=== PATIENT | female | born 1995 | race Hispanic/Latino ===

== ENCOUNTER 2020-02-03 06:54 | Observation (INO) | payer OTHER ==
[~2020-02-03] VITALS: Ht 154.9 cm; Wt 99.8 kg
--- NOTE | 2020-02-03 10:40 | NUR ---
New admit to the floor. Pt arrived awake, alert and oriented x4. Vital signs are stable, afebrile. Pt instructed on her NPO status. Pt reports tolerable right upper quadrant pain. Positive bt's x4 quadrants. Pt denies rectal bleeding. No needs at this time. Call light within reach.
--- NOTE | 2020-02-03 12:51 | EKG ---
[facility] [address] [facility] [place] [address] Signed Normal sinus rhythm with sinus arrhythmia Cannot rule out Anterior infarct , age undetermined Abnormal ECG When compared with ECG of 28-JUL-2018 02:17, No significant change was found Confirmed by VIRGINIA DELGADO MD ([id number]) on 02/03/2020 12:50:50 PM Electronically Signed By: VIRGINIA DELGADO MD 02/03/20 1251 PATIENT NAME: FOYDUARTE Electrocardiogram DATE OF : [birth year] PHYSICIAN: VIRGINIA DELGADO MD REPORT #: [id number] REPORT IS CONFIDENTIAL AND NOT TO BE RELEASED WITHOUT AUTHORIZATION
--- NOTE | 2020-02-03 13:13 | NUR ---
Pt off unit in surgery at this time.
--- NOTE | 2020-02-03 14:04 | NUR ---
CHECKING ON PT, JAIDEN LOVELACE INFORMED ME PT TAKEN TO OR FOR LAP ELTON SURGERY. WILL FOLLOW UPON HER RETURN
--- NOTE | 2020-02-03 15:26 | NUR ---
02/03/20 1526 Zainab Robert 1502 PT ARRIVED IN PACU NON RESPONSIVE TO NOXIOUS STIMULI WITH OPA IN PLACE. CHIN LIFT HELD BY RN. 1515 PT REACTIVE. OPA REMOVED. DR AT BEDSIDE. 1525 OXYGEN REMOVED. SATS 93-95% ON RA. NO C/O'S AT THIS TIME.
--- NOTE | 2020-02-03 16:47 | NUR ---
Neuro check completed; pt has no notable physical deficits, however, is disoriented to all questions-Pt unable to tell me what her name is, location, date and or situtation. Pt's in room, pt did not recignize him. Pt's was present upon admit to this floor prior to surgery. Pt's hob elevated, alarm intact and bed moved to location directly in front of nurses station. Dressing to abdomen is cdi, x3 lap sites, rlq troy drain intact and patent. Encouraged pt to rest at this time. Cpox intact, 02 sat level of 97% on 2l oxygen per nc. No needs at this time. Call light within reach. Pt's speech is clear at this time.
--- NOTE | 2020-02-03 17:39 | NUR ---
Pt still confused, hob elevated. Pt reports pain is "ok" at this time. Zofran 4mg ivp admin for reports of nausea. Vital signs stable, cpox intact, 96% on 2L oxygen. LR infusing at this time. Incisions dressing CDI, troy drain intact and patent to rlq. Bed alarm intact. Pt voided in bedpain for safety; q/s. No needs at this time.
--- NOTE | 2020-02-03 18:53 | NUR ---
tORADOL 30MG IVP ADMIN FOR REPORTS OF 8/10 ABD PAIN.
--- NOTE | 2020-02-03 20:01 | NUR ---
PATIENT USING THE BED PEREZ, MORE ORIENTED NOW FROM DAYSHIFT REPORT. CALL LIGHT IN REACH.
--- NOTE | 2020-02-03 21:43 | NUR ---
PT CALLED, NEEDED TO USE BATHROOM. MIMINAL ASSISTANCE, ABLE TO WALK SLOWLY TO BATHROOM, AND BACK TO BED. ABLE TO PUT SELF INTO BED, RA, NOTED THAT O2 DIPPED TO 87, ENCOURAGED PT TO BREATH SHE MOVES. REBOUNDED QUICKLY TO 92, BACK ON O2. PT ATE FEW BITES OF JELLO. SCD'S IN PLACE, BED ALARM IN PLACE.
--- NOTE | 2020-02-03 23:34 | NUR ---
PATIENT WAS UP TO USE THE BATHROOM AND BACK TO BED 1 PA. IS IN THE ROOM.
--- NOTE | 2020-02-03 23:41 | NUR ---
PATIENT UP TO THE BATHROOM AND BACK TO BED WITH HELP FROM AND SOFTWARE RELEASE MANAGER. CALL LIGHT IN REACH. IN ROOM.
--- NOTE | 2020-02-04 02:52 | NUR ---
SBA TO THE BATHROOM AND BACK TO BED. IS IN THE ROOM.
--- NOTE | 2020-02-04 05:55 | NUR ---
PATIENT STILL HAVING 7/10 ABD PAIN AND NAUSEA. 4MG IV ZOFRAN GIVEN AND 2 PO NORCO. CALL LIGHT IN REACH.
--- NOTE | 2020-02-04 07:10 | NUR ---
REPORT RECIEVED FROM ALEJANDRA HWANG.
--- NOTE | 2020-02-04 08:08 | NUR ---
MORNING ASSESSMENT DONE. X3 SCOPE SITES INTACT WITH OLD DRAINAGE. RLQ ALTAGRACIA DRAIN STRIPPED AND EMPTIED FOR 10ML OF SEROSANGUIOUS FLUID THIS MORNING. PATIENT RATES PAIN 7/10, EASILY FALLS ASLEEP. PATIENT IS ON 1L OF O2 WITH SATE 93%, INCENTIVE SPIROMETER GIVEN, EDUCATED, PATIENT DID NOT GIVE RETURN DEMONSTRATION. ENCOURAGED SPIROMETER USE, ENCOURAGED PATIENT TO AMBULATE OUT OF BED. CURTAINS OPENED FOR DAYTIME. PATIENT DENIES WANTING T0 ORDER BREAKFAST, ENDORSES CONTINUING NAUSEA.
--- NOTE | 2020-02-04 10:00 | NUR ---
SPOKE WITH [employer] OFFICER. SHE STATES PATIENT HAS NO CM NEEDS KNOWN. SHE HAS DISCHARGE PLAN TO GO HOME WITH FAMILY AND WILL FOLLOW UP WITH DR FRAGOSO. THEY WILL PLACE CONSULT IF ANYTHING ARISES FOR CONCERN.
--- NOTE | 2020-02-04 10:01 | NUR ---
PATIENT PLACED ON ROOM AIR, SATS ARE 95%. ENCOURAGED PATIENT TO USE I/S, PATIENT REPLIED, "IT'S JUST TOO HARD, I CAN'T."
--- NOTE | 2020-02-04 11:24 | NUR ---
PATIENT ENCOURAGED TO GET UP AND VOID. REQUESTED PATIENT TO AMBULATE IN HALLWAY, SOMEWHAT RESISTANT, BUT DID TAKE A SHORT WALK IN HALLWAY.
--- NOTE | 2020-02-04 12:40 | NUR ---
PATIENT CONTINUES TO EAT MINIMAL AMOUNTS, DID ORDER A LUNCH TRAY BUT DENIES WANTING TO EAT AT THIS TIME. DR. MALDONADO HAS BEEN IN TO SEE PATIENT.
--- NOTE | 2020-02-04 13:41 | NUR ---
PATIENT IS GETTING UP AD DEBRA AND MOVING AROUND ROOM FOR ACTIVITY. PATIENT CONTINUES ON ROOM AIR WITH O2 SATS 91%, PATIENT ENCOURAGED TO USE I/S AND TAKE DEEP BREATHS. ALTAGRACIA EMPTIED FOR 10ML OF SERO/CLEARING TO YELLOW FLUID. PATIENT DENIES PAIN AT THIS TIME AND WOULD LIKE TO TAKE TYLENOL AT 1430
--- NOTE | 2020-02-04 17:07 | NUR ---
PATIENT UP TO VOID, ALTAGRACIA EMPTIED FOR 8ML OF YELLOW TINGED FLUID. PATIENT IS UP TO CHAIR FOR DINNER OF STEAK AND BAKED POTATO. PATIENT DENIES NEED FOR PAIN MEDICATIONS.
--- NOTE | 2020-02-04 19:01 | HP ---
[facility] [address] [place], [place] [address] Signed ADMISSION DATE: 02/03/2020 REASON FOR ADMISSION: Acute calculous cholecystitis. HISTORY OF PRESENT ILLNESS: This 24-year-old morbidly obese woman is accompanied by her . At approximately 3:00 a.m., she began having upper abdominal pain symptoms. In [place] a number of years ago, she presented with similar symptoms and was known to have gallstones at that time, but was considered "not needing cholecystectomy at that time." The pain actually presented as low anterior or epigastric pain. It waxes and wanes and is rather significant and severe to her. She has had no associated respiratory symptoms and no precordial chest pain or left upper extremity pain. Notably, she has no prior history of childbirth and is uncertain about any other family members with biliary disease. The patient does not work. Her who accompanies her, works at [employer] in the night custodian. The patient has not been exposed to any others with COVID symptoms. A COVID swab is reported to have been obtained in the ultrasound. Evaluation in the emergency room by Dr. Sage included a gallbladder ultrasound, which showed multiple gallstones and negative Arrington sign. PAST SURGICAL HISTORY: Includes right foot or ankle surgery in the distant past. She has no ongoing medical problems. Her evaluation included a urinalysis, which showed 2 white cells, trace leukocyte esterase. Her CBC showed a white count of 11.2, hematocrit 42.3, platelets 400,000. Liver enzymes were normal. Alkaline phosphatase was 62. Her bilirubin was 0.2. REVIEW OF SYSTEMS: She denies any shortness of breath or chest pain. She has had no dysphagia or dysuria. She has right upper abdominal pain and epigastric pain. PHYSICAL EXAMINATION: GENERAL: A morbidly obese woman, who speaks Bangladeshi well. She is accompanied by her . Electronically Signed By: HARLEY MALDONADO MD 02/04/20 1901 PATIENT NAME: DUARTE FOY HISTORY AND PHYSICAL DATE OF : [birth year] REPORT #: [id number] PHYSICIAN: HARLEY MALDONADO MD PCP: NO PRIMARY CARE PHYSICIAN REPORT IS CONFIDENTIAL AND NOT TO BE RELEASED WITHOUT AUTHORIZATION [facility] [address] [place], [place] [address] Signed VITAL SIGNS: Show a temperature of 97.3, pulse 66, blood pressure 101/39. NECK: Shows no thyromegaly or cervical adenopathy. Trachea is midline. CHEST: Clear. HEART: Regular without murmur. ABDOMEN: Very obese, but soft. There is tenderness in the right subcostal area and epigastric area. EXTREMITIES: Show no clubbing, cyanosis, or edema. LAB STUDIES: As previously noted. Gallbladder ultrasound reports as described. I have reviewed the images myself, which show normal appearing liver and gallbladder with a thickened gallbladder wall and apparent stones in the infundibulum. These are shadowing stones. ASSESSMENT: The patient has acute calculous cholecystitis. She has had problems in the past. She has been admitted for fluid resuscitation, IV antibiotics, anticipating cholecystectomy. It likely could be done today. The risks of bleeding, infection, bile duct injury, need for open procedure and other unforeseen complications was reviewed in detail. She understands and wished to proceed. Harley Maldonado MD JM/MODL /[id number] cc: Rafa Sage MD Copies: RAFA SAGE MD ~ Electronically Signed By: HARLEY MALDONADO MD 02/04/20 1901 PATIENT NAME: DUARTE FOY HISTORY AND PHYSICAL DATE OF : [birth year] REPORT #: [id number] PHYSICIAN: HARLEY MALDONADO MD PCP: NO PRIMARY CARE PHYSICIAN REPORT IS CONFIDENTIAL AND NOT TO BE RELEASED WITHOUT AUTHORIZATION
--- NOTE | 2020-02-04 19:01 | OR ---
[facility] [address] [place], [place] [address] Signed DATE OF OPERATION: 02/03/2020 SURGEON: Harley Maldonado MD PREOPERATIVE DIAGNOSES: 1. Acute calculous cholecystitis. 2. Morbid obesity. POSTOPERATIVE DIAGNOSES: 1. Acute calculous cholecystitis. 2. Morbid obesity. PROCEDURE: 1. Laparoscopic cholecystectomy with intraoperative cholangiogram. 2. Surgeon-directed fluoroscopy (prolonged, complicated, difficult, all of it). ANESTHESIA: General endotracheal; Viet Flores CRNA. DRAINS: 7 mm Mike. INDICATIONS: This morbidly obese 24-year-old woman lives in [place]. Several years ago in [place] while visiting, she went to the ER, was found to have symptoms of biliary colic and a gallbladder ultrasound performed, confirming gallstones. This was several years ago. She presented to the emergency room today and was evaluated by Dr. Yen with severe epigastric and substernal pain as well as right subcostal tenderness. Gallbladder ultrasound was performed confirming gallstones and a thickened gallbladder wall at least on my examination. She has been fluid resuscitated given intravenous antibiotics, and is recommended to undergo cholecystectomy for acute calculous cholecystitis. The risks of bleeding, infection, bile duct injury, need for open procedure and other unforeseen complications were reviewed in detail. Notably, the patient is quite morbidly obese and is anticipated to have possibly increased risk of need for open procedure. FINDINGS: She was indeed quite morbidly obese. The liver did not have excessive fatty infiltration however. Cholecystectomy was performed and cholangiogram showed free flow of contrast in the duodenum, no filling defect. The gallbladder itself was acutely Electronically Signed By: HARLEY MALDONADO MD 02/04/20 1901 PATIENT NAME: DUARTE FOY OPERATIVE REPORT DATE OF : [birth year] REPORT #: [id number] PHYSICIAN: HARLEY MALDONADO MD PCP: NO PRIMARY CARE PHYSICIAN REPORT IS CONFIDENTIAL AND NOT TO BE RELEASED WITHOUT AUTHORIZATION [facility] [address] [place], [place] [address] Signed inflamed and had two large gallstones wedged in the infundibulum. There was no sign of malignancy. The procedure was prolonged, complicated, and difficult on the basis of her obesity. An additional fan retractor was required testifying to the obesity issue. DESCRIPTION OF PROCEDURE: The patient was brought to the operating room, given a general endotracheal anesthetic. Preoperative antibiotic Ancef had been given. Sequential compression device stockings were used as well. The patient had COVID-19 testing, but the result was not yet back. Full precautions for COVID-19 were employed by all personnel. The abdomen was prepared with a chlorhexidine solution and draped sterilely. An infraumbilical incision was made and using an open Norma cannula technique, pneumoperitoneum achieved to a level of 14 mmHg of carbon dioxide gas. Intraabdominal inspection showed no sign of ascites or carcinomatosis. The gallbladder was distended and acutely inflamed, but not gangrenous. The liver edge was sharper than expected. She did not have much fatty infiltration as I would have anticipated. Three additional trocars were placed in usual configuration in the subxiphoid, right midclavicular, and right anterior axillary line. The gallbladder was elevated cephalad, but could not be fully exposed due to omentum and fatty tissue elsewhere. On that basis, an additional 5 mm trocar was placed in the epigastric area to allow for a fan retractor to be placed. Using blunt and electrocautery dissection, the triangle of Calot was dissected free ultimately identifying well the cystic arterial branch lymph node as well as the cystic duct. Cystic artery was doubly clipped and divided and the cystic duct more fully dissected free. A clip was applied across the gallbladder cystic duct junction. A transverse choledochotomy was made in the cystic duct and using the Frazier type cholangiocatheter , intraoperative cholangiography was undertaken showing free flow of contrast in the biliary tree with prompt emptying into the duodenum. Retrograde filling was not forthcoming and therefore, a 4 mg of morphine were given intravenously. With passage of time, repeat cholangiography was undertaken showing retrograde filling of the proximal biliary tree which appeared normal. The catheter was removed and the cystic duct was triply clipped. The gallbladder was then dissected free in a retrograde fashion using electrocautery. The gallbladder was somewhat intrahepatic. A few clips were placed in the gallbladder bed where the avascular plane had been transgressed. Electrocautery was used for hemostasis. The gallbladder was extracted through the infraumbilical port after placing an endobag. Subhepatic space was examined, found to be reasonably hemostatic. Some Connie hemostatic powder was insufflated into the subhepatic space and the gallbladder fossa. Given her obesity and so forth, a drain was deemed advisable. Through right-sided trocar site, a 7 mm flat Miek drain was placed in the subhepatic space. Later secured the skin with nylon suture. The trocars were removed under direct visualization showing no sign of bleeding. The infraumbilical Electronically Signed By: HARLEY MALDONADO MD 02/04/20 5382 PATIENT NAME: DUARTE FOY OPERATIVE REPORT DATE OF : [birth year] REPORT #: [id number] PHYSICIAN: HARLEY MALDONADO MD PCP: NO PRIMARY CARE PHYSICIAN REPORT IS CONFIDENTIAL AND NOT TO BE RELEASED WITHOUT AUTHORIZATION [facility] [address] [place], [place] [address] Signed fascial incision was reapproximated with interrupted 0 Vicryl suture as well as a running 0 PDS suture. A 20 mL of 0.25% Marcaine with epinephrine was injected locally in all the trocar sites. The skin was then closed with interrupted 3-0 Vicryl, Steri-Strips were applied. The patient was ultimately extubated and transferred to the recovery room in good condition having suffered no complications. Sponge, needle, and instrument counts reported as correct x3. MD SALOMON Lemon/MODL /[id number] cc: Rafa Yen MD Copies: RAFA YEN MD ~ Electronically Signed By: HARLEY MALDONADO MD 02/04/20 1901 PATIENT NAME: DUARTE FOY OPERATIVE REPORT DATE OF : [birth year] REPORT #: [id number] PHYSICIAN: HARLEY MALDONADO MD PCP: NO PRIMARY CARE PHYSICIAN REPORT IS CONFIDENTIAL AND NOT TO BE RELEASED WITHOUT AUTHORIZATION
--- NOTE | 2020-02-04 19:26 | NUR ---
PATIENT RESTING IN BED, WATCHING TV, CALL LIGHT IN REACH.
--- NOTE | 2020-02-04 20:51 | PATH ---
[facility] [address] [facility] [place], [place] [address] Signed ORDERING PHYSICIAN: Skip Garcia MD PATIENT NAME: DUARTE FOY GENDER: F : 1995 SPECIMEN(S): No Source Given MOLECULAR PATHOLOGY RESULTS: SARS-CoV-2 Not Detected ADDITIONAL NOTES.: The [place] Fusion SARS-CoV-2 Assay is a multiplex real-time PCR (RT-PCR) in vitro diagnostic test intended for the qualitative detection of RNA from SARS-CoV-2 from individuals who meet COVID-19 clinical and/or epidemiological criteria. In general, SARS-CoV-2 RNA can be detected during the acute phase of infection. Positive results indicate the presence of SARS-CoV-2 RNA. Clinical correlation with patient history and other diagnostic information is necessary to determine patient infection status. Positive results do not rule out bacterial infection or co-infection with other viruses. Negative results do not preclude SARS-CoV-2 infection and should not be used as the sole basis for patient management decisions. Negative results must be combined with other clinical observations, patient history, and epidemiological information. The [place] Fusion SARS-CoV-2 Assay is not yet approved or cleared by the [place] FDA. When there are no FDA-approved or cleared tests available, and other criteria are met, FDA can make tests available under an emergency access mechanism called an Emergency Use Authorization (EUA). The EUA for this test is supported by the [place] of Health and Human Service's (HHS's) declaration that circumstances exist to justify the emergency use of in vitro diagnostics for the detection and/or diagnosis of the virus that causes COVID-19. This EUA will remain in effect for the duration of the COVID-19 declaration justifying emergency of IVDs, unless it is terminated or revoked by FDA, after which the test may no longer be used. The [place] Fusion SARS-CoV-2 Assay is for use only under EUA in US laboratories certified under the Clinical Laboratory Improvement Amendments of 1988 (CLIA) to perform high complexity tests. [facility] is certified under CLIA to perform high complexity PATIENT NAME: DUARTE FOY PATHOLOGY DATE OF : [birth year] REPORT #: [id number] PHYSICIAN: MERCED PABLO PCP: NO PRIMARY CARE PHYSICIAN REPORT IS CONFIDENTIAL AND NOT TO BE RELEASED WITHOUT AUTHORIZATION [address] [address] Signed clinical laboratory testing. PERFORMING LABORATORY.: Molecular testing was performed by [facility] [place] [address] (Certified Diabetes Educator: Awais Mooney D.O.; CLIA#: [id number]) Diagnostician: System Interface Pathologist Electronically Signed 02/04/2020 Copies: ~ PATIENT NAME: DUARTE FOY PATHOLOGY DATE OF : [birth year] REPORT #: [id number] PHYSICIAN: MERCED PABLO PCP: NO PRIMARY CARE PHYSICIAN REPORT IS CONFIDENTIAL AND NOT TO BE RELEASED WITHOUT AUTHORIZATION
--- NOTE | 2020-02-04 22:02 | NUR ---
PATIENT RESTING IN BED, STATES SHE IS PAINFUL. PATIENT STATES SHE DOES NOT NEED TO VOID AT THIS TIME, ENCOURAGED PATIENT TO CALL WHEN READY TO TRY TO VOID. RN TO BEDSIDE. CALL LIGHT IN REACH. NO FURTHER NEEDS AT THIS TIME.
--- NOTE | 2020-02-04 22:30 | NUR ---
PATIENT SAYS SHE IS HAVING 9/10 ABD PAIN,BUT WILL NOT TAKE ANY NARCOTICS. 600MG PO MOTRIN GIVEN, AND 4MG ZOFRAN FOR PREVENTING NAUSEA. LAP SITES HAVE CRUSTY STERI-STRIPS. DRAIN DRESSING HAS A LITTLE SHADOWING. PATIENT GOING TO TRY AND GET SOME SLEEP. CALL LIGHT IN REACH.
--- NOTE | 2020-02-04 23:18 | NUR ---
PATIENT UP TO THE BATHROOM AT THIS TIME WITH EDWARD THE CONCRETE LABORER AND BASILIA THE CHARGE NURSE AND VOIDED 300MLS.
--- NOTE | 2020-02-04 23:23 | NUR ---
PATIENT ENCOURAGED TO AMBULATE TO BATHROOM, IS VERY PAINFUL WHEN STANDING. PATIENT STATES IF THERE IS ANYTHING ELSE FOR PAIN SHE WOULD TAKE IT, RN NOTIFIED. PATIENT STOOD AT SINK AND PERFORMED ORAL CARE AND PM CARE. BACK IN BED, CALL LIGHT IN REACH, BELONGINGS AT BEDSIDE. NO FURTHER NEEDS AT THIS TIME.
--- NOTE | 2020-02-04 23:29 | NUR ---
PATIENT SAYS HER PAIN IS NOW 10/10 IN THE ABD AFTER GOING TO THE BATHROOM AND DID TAKE 1 NORCO FOR PAIN. CALL LIGHT IN REACH.
--- NOTE | 2020-02-05 01:08 | NUR ---
PATIENT STILL HAVING 9/10 PAIN AND TOOK HER SECOND NORCO. IF THIS DOES NOT HELP HER PAIN SHE WANTS TO GO TO THE NORCO. CALL LIGHT IN REACH.
--- NOTE | 2020-02-05 02:29 | NUR ---
PATIENT'S PAIN IS FINALLY DOWN TO A 5/10 AND SHE IS COMFORTABLE, SO 2 NORCO AT A TIME SEEMS TO COVER HER PAAIN SUFFICIENT AAND HER NAUSEA IS GONE AND SHE IS EATING KEEGAN CRACKERS. CALL LIGHT IN REACH.
--- NOTE | 2020-02-05 04:40 | NUR ---
PATIENT RESTING QUIETLY, EYES CLOSED, RESPIRATIONS REGULAR AND EVEN, PATIENT'S NEURO CHECKS HAVE BEEN FINE ALL NIGHT, NO MORE CONFUSION. PATIENT FINALLY COMFORTABLE ENOUGH TO SLEEP. CALL LIGHT IN REACH.
--- NOTE | 2020-02-05 06:49 | NUR ---
PATIENT GOT 10/10 ABD PAIN AFTER GETTING UP TO USE THE BATHROOM. 2 PO NORCO GIVEN. CALL LIGHT IN REACH AND IN THE ROOM.
--- NOTE | 2020-02-05 09:10 | NUR ---
PT ATE SOME BKF THIS AM AND HAS BEEN UP TOT HE BATHROOM. ENCOURAGE PT TO GET OUT OF BED AND AMBULATE IN THE JOE WITH MASK ON.
--- NOTE | 2020-02-05 11:09 | PATH ---
[facility] [address] [facility] [place], [place] [address] Signed SPECIMEN(S): A GALLBLADDER WITH STONES SPECIMEN SOURCE: A. GALLBLADDER WITH STONES CLINICAL HISTORY: Cholecystitis, acute calculous. FINAL PATHOLOGIC DIAGNOSIS: Gallbladder, cholecystectomy: - Chronic cholecystitis with cholesterolosis. - Cholelithiasis. NAL:cml:C2NR MICROSCOPIC EXAMINATION: Histologic sections of all submitted blocks are examined by light microscopy. These findings, together with the gross examination, support the pathologic diagnosis. GROSS DESCRIPTION: The specimen, labeled "CQ, gallbladder," is received in formalin and consists of Specimen: Previously opened gallbladder. Dimensions: 6.5 cm in length and 4.2 cm in inner circumference. Serosa: Violaceous and smooth. Cystic Duct: unobstructed. Calculi: Two dark green gallstones that range in size from 1.6-2.6 cm in greatest dimension. Mucosa: Green and velvety. Wall thickness: 0.7 cm. Lymph node: No pericystic lymph nodes are grossly identified. Additional: None. Bonbon Dipper sections are submitted in cassette (A1). JS (under the direct supervision of a pathologist) The Gross Description was prepared using a voice recognition system. The report was reviewed for accuracy; however, sound-alike word errors, addition and/or deletions may occur. If there is any question about this report, please contact Client Services. PERFORMING LABORATORY: The technical component was performed by [employer], Kasie Jeffries, PATIENT NAME: DUARTE FOY PATHOLOGY DATE OF : [birth year] REPORT #: [id number] PHYSICIAN: MERCED PATHOLOGY PCP: NO PRIMARY CARE PHYSICIAN REPORT IS CONFIDENTIAL AND NOT TO BE RELEASED WITHOUT AUTHORIZATION [facility] [address] [place], [place] [address] [place] [address] (Insulation Supervisor: Rosina Soto MD; CLIA# [id number]). Professional interpretation [facility], [address] [address] (CLIA# [id number]). Diagnostician: Kelsie Hawk MD Pathologist Electronically Signed 02/05/2020 Copies: ~ PATIENT NAME: DUARTE FOY PATHOLOGY DATE OF : [birth year] REPORT #: [id number] PHYSICIAN: MERCED PABLO PCP: NO PRIMARY CARE PHYSICIAN REPORT IS CONFIDENTIAL AND NOT TO BE RELEASED WITHOUT AUTHORIZATION
--- NOTE | 2020-02-05 11:43 | NUR ---
PT MEDICATED FOR ABD PAIN WITH 2 NOCRO'S PO WITH CRACKERS AND PUDDING. P[T HAS SHOWERED AND HAS BEEN UP AMBULATING IN THE JOE.
--- NOTE | 2020-02-05 13:02 | NUR ---
PT ASLEEP AT THIS TIME, RESP RATE EVEN AND UNLABORED AT THIS TIME.
--- NOTE | 2020-02-05 15:00 | NUR ---
PT AWAKE AT THIS TIME, TALKING TO MOTHER VIA PHONE. PT GOING TO EAT HER LUNCH AT THIS TIME. ZOFRAN 8MG IVP GIVEN TO HELP WITH THE NAUSEA FROM THE ANCEF.
--- NOTE | 2020-02-05 18:44 | NUR ---
PT MEDICATED WITH 2 NORCO FOR PAIN AFTER ALTAGRACIA BEING REMOVED. ENCOURAGE PT TO SIT UP IN THE CHAIR FOR DINNER.
--- NOTE | 2020-02-05 19:05 | NUR ---
SHIFT REPORT RECEIVED FROM BRAD ORTEGA AT BEDSIDE. PT AWAKE AND RESTING IN BED. DINNER TRAY REMOVED. LAP SITES X3 IN PLACE WITH STERI STRIPS, DRY SHADOWING NOTED. BANDAID NOTED TO RIGHT QUADRANT FROM ALTAGRACIA REMOVAL. NO NEEDS AT THIS TIME. CALL LIGHT IN REACH.
--- NOTE | 2020-02-05 20:04 | NUR ---
PT AMBULATING INDEPENDENTLY IN HALLWAY. NO NEEDS VERBALIZED.
--- NOTE | 2020-02-05 22:30 | NUR ---
ASSESSMENT COMPLETE, SCHEDULED MEDS GIVEN (SEE EMAR). PT AWAKE. VSS, REPORTS 7/10 PAIN. MEDICATED WITH PRN NORCO (SEE EMAR). LAP SITES X3 NOTED, NO CHANGE IN SITE APPEARANCE. ALTAGRACIA REMOVAL SITE ALSO UNCHANGED. FRESH ICE WATER PROVIDED, CALL LIGHT IN REACH.
--- NOTE | 2020-02-05 23:36 | NUR ---
PT AWAKE AND PLAYING GAME ON THE PHONE, NO DISTRESS NOTED. PT RECENTLY UP TO VOID AND BACK TO BED. REFUSES SCD'S AT THIS TIME. NO FURTHER NEEDS, CALL LIGHT IN REACH.
--- NOTE | 2020-02-06 02:57 | NUR ---
PT AWAKE AND RESTING IN BED, ON HER PHONE. DENIES NEEDS OR CONCERNS. CALL LIGHT IN REACH.
--- NOTE | 2020-02-06 04:21 | NUR ---
ASSESSMENT COMPLETE, PT AWAKE AND UNABLE TO SLEEP. NO DISTRESS NOTED, PLAYING ON HER PHONE. REPORTS 9/10 PAIN R/T HEADAHCE, PRN TYLENOL GIVEN (SEE EMAR). NO CAHNGES IN LAP SITES OR ALTAGRACIA REMOVAL SITE. NO FURTHER NEEDS, DENIES NAUSEA. CALL LIGHT IN REACH.
--- NOTE | 2020-02-06 07:39 | NUR ---
REPORT RECIEVED FROM JAIDEN CIFUENTES.
--- NOTE | 2020-02-06 08:37 | NUR ---
PATIENT UP TO BATHROOM TO VOID, SPOUSE IN ROOM. PLAN TO ASSESS PATIENT WHEN SHE CALLS.
--- NOTE | 2020-02-06 09:41 | NUR ---
PATIENT UP TO BATHROOM, HAVING DIFFICULTY HAVING A BM, "I CAN'T PUSH IT OUT." DULCOLAX SUPPOSITORY GIVEN. PATIENT IS TEARFUL.
--- NOTE | 2020-02-06 12:31 | NUR ---
PATIENT WAS ABLE TO HAVE A BM TODAY, ENDORSES BEING READY TO GO HOME.
[2020-02-06] MEDS ORDERED: ACETAMINOPHEN500 MG PO (13:08)
[2020-02-06] MEDS ORDERED: ZOFRAN4 MG PO (13:08)
[2020-02-06] MEDS ORDERED: IBUPROFEN600 MG PO (13:08)
[2020-02-06] MEDS ORDERED: HYDROCODON-ACE1 EA10 PO (13:08)
--- NOTE | 2020-02-08 13:39 | DS ---
[facility] [address], [place] [address] Signed ADMISSION DATE: 02/03/2020 DISCHARGE DATE: 02/06/2020 REASON FOR ADMISSION: This 24-year-old morbidly obese woman is accompanied by her at approximately 3 in the morning, began having upper abdominal pain. She has had similar symptoms years before when living in [place]. She had an ultrasound at that time showing gallstones and was considered "not needing surgery at that time." She has no prior history of childbirth, indeed has several years, but she is amenorrheic probably related to polycystic ovary disease. In any case, she was evaluated in the emergency room by Dr. Sage. The gallbladder ultrasound confirmed multiple gallstones and a negative Arrington sign. She was admitted for further evaluation and care for acute calculous cholecystitis. PERTINENT PHYSICAL EXAMINATION: GENERAL: Showed an obese woman. VITAL SIGNS: Temperature 97.3, pulse 66, blood pressure 101/39. CHEST: Clear. HEART: Regular without murmur. ABDOMEN: Very obese, but soft. There is tenderness in right subcostal area and the epigastric area. HOSPITAL COURSE: She was admitted, given fluid resuscitation, IV antibiotics, and so forth. On February 03, 2020, she underwent laparoscopic cholecystectomy with intraoperative cholangiogram. Procedure was rather prolonged and difficult based on her extreme obesity. Findings included gallbladder that was acutely inflamed with two large gallstones with wedge in the infundibulum. There was no sign of malignancy. Cholangiogram was normal. Her postoperative course was one of slow progress. The drain was placed at time of operation, but showed no sign of bile leak or other problem and it was removed the day prior to discharge. She was rather slow to mobilize and required encouragement. She cautiously initiated food which she ultimately tolerated well. The drain was removed and by the following day, she was tolerating regular diet and has normal bowel movements and is feeling much better. She will be discharged to home anticipating return to clinic in about 4 weeks or so. She will call on Sunday to set up an appointment. She is instructed to keep Steri-Strips on. She is permitted to shower as desired. She should lift no more than 20 pounds for the next 2 weeks. DISCHARGE MEDICATIONS: 1. Ibuprofen 600 mg p.o. q.6 hours as needed for pain #60. Electronically Signed By: HARLEY MALDONADO MD 02/08/20 1339 PATIENT NAME: DUARTE FOY DISCHARGE SUMMARY DATE OF : [birth year] REPORT #: [id number] PHYSICIAN: HARLEY MALDONADO MD PCP: NO PRIMARY CARE PHYSICIAN REPORT IS CONFIDENTIAL AND NOT TO BE RELEASED WITHOUT AUTHORIZATION [facility] [address], [place] [address] Signed 2. Protivin 5/325 one p.o. q.4 hours as needed for pain #10. 3. Tylenol 500 mg two tablets p.o. q.6 hours as needed for pain. 4. In addition, she will have Zofran 4 mg p.o. q.6 hours as needed. DISCHARGE DIAGNOSES: 1. Acute calculous cholecystitis, status post laparoscopic cholecystectomy with intraoperative cholangiogram and placement of drain. 2. Morbid obesity. 3. Amenorrheic times several years. Harley Maldonado MD JM/MODL /[id number] cc: Rafa Sage MD Copies: RAFA SAGE MD ~ Electronically Signed By: HARLEY MALDONADO MD 02/08/20 1339 PATIENT NAME: DUARTE FOY DISCHARGE SUMMARY DATE OF : [birth year] REPORT #: [id number] PHYSICIAN: HARLEY MALDONADO MD PCP: NO PRIMARY CARE PHYSICIAN REPORT IS CONFIDENTIAL AND NOT TO BE RELEASED WITHOUT AUTHORIZATION
== END 2020-02-06 13:30 | disposition home or self-care (01) ==
LOC: ED 06:54 → MS 06:56
PROVIDERS: ADMIT Surgery
PROC: BF13YZZ Fluoroscopy of Gallbladder and Bile Ducts using Other Contrast (ICD-10-PCS; 2020-02-03)
PROC: 0FT44ZZ Resection of Gallbladder, Percutaneous Endoscopic Approach (ICD-10-PCS; principal; 2020-02-03 18:00)
DX: K80.12 Calculus of gallbladder with acute and chronic cholecystitis without obstruction (principal); K76.0 Fatty (change of) liver, not elsewhere classified; E66.01 Morbid (severe) obesity due to excess calories; Z68.41 Body mass index [BMI] 40.0-44.9, adult
CPT/HCPCS: 00790; 36415; 74300; 76705; 80053; 81001; 82150; 82247; 82465; 83615; 83690; 84100; 84478; 84550; 84703; 85025; 93005; 93010; 96374; 96375; 99285-25; A9270; C9803; J0690; J1100; J1170; J1644; J1815; J1885; J2001; J2270; J2405; J2704; J3010; J3480; J7030; J7121; Q9967

== ENCOUNTER 2020-06-17 21:54 | Emergency (ER) | payer SELFPAY ==
[~2020-06-17] VITALS: Ht 154.9 cm; Wt 94.3 kg
[~2020-06-17 21:54] MED LIST: ACETAMINOPHEN500 MG PO; HYDROCODON-ACE1 EA10 PO; IBUPROFEN600 MG PO; ZOFRAN4 MG PO
[2020-06-17] MEDS ORDERED: PENICILLIN V P500 MG PO (22:26)
== END 2020-06-17 23:06 | disposition home or self-care (01) ==
LOC: ED 21:54
DX: K08.89 Other specified disorders of teeth and supporting structures (principal)
CPT/HCPCS: 96372; 99282; J1885

== ENCOUNTER 2020-09-10 18:02 | Emergency (ER) | payer OTHER ==
[~2020-09-10] VITALS: Ht 154.9 cm; Wt 94.3 kg
[~2020-09-10 18:02] MED LIST changes: +PENICILLIN V P500 MG PO
[2020-09-10] MEDS ORDERED: HYDROCODON-ACE1 EA10 PO (18:46)
[2020-09-10] MEDS ORDERED: CIPRO500 MG PO (18:46)
[2020-09-10] MEDS ORDERED: ZOFRAN4 MG PO (18:46)
[2020-09-13] MEDS ORDERED: HYDROCODON-ACE1 EA10 PO (08:34)
[2020-09-13] MEDS ORDERED: FLAGYL500 MG PO (08:34)
== END 2020-09-10 20:07 | disposition home or self-care (01) ==
LOC: ED 18:02
DX: N12 Tubulo-interstitial nephritis, not specified as acute or chronic (principal); N39.0 Urinary tract infection, site not specified
CPT/HCPCS: 80053; 81001; 83690; 84703; 85025; 96365; 96375; 99284-25; J0696; J1200; J2270; J2405; J7030